=== PATIENT | male | born 1995 | race Caucasian/White ===

== ENCOUNTER 2023-09-02 08:43 | Observation (INO) ==
--- NOTE | 2023-08-24 14:16 | PAT Medication Instructions ---
Medication Instructions Date of Service August 24, 2023 Home Medications Medication Instructions Recorded cyclobenzaprine 5 mg tablet 5 mg PO BID PRN muscle spasm #30 07/21/23 tabs lidocaine 5 % topical patch 1 patch topical DAILY #30 ea 07/21/23 (Lidoderm) cyclobenzaprine 5 mg tablet 5 mg PO BID PRN muscle spasm lidocaine 5 % topical patch (Lidoderm) 1 patch topical DAILY ibuprofen 200 mg tablet 400 mg PO Q6H PRN Pain acetaminophen 500 mg tablet 1,000 mg PO Q8 PRN Pain multivitamin 1 tab PO QAM Continue as directed lidocaine 5 % topical patch (Lidoderm) 1 patch topical DAILY (just do not put on or near surgical site) ASK your surgeon for instructions ibuprofen 200 mg tablet 400 mg PO Q6H PRN Pain DO NOT take the morning of surgery multivitamin 1 tab PO QAM Take morning of surgery With a small sip of water, OTHERWISE NOTHING TO EAT OR DRINK AFTER MIDNIGHT: cyclobenzaprine 5 mg tablet 5 mg PO BID PRN muscle spasm (if needed) acetaminophen 500 mg tablet 1,000 mg PO Q8 PRN Pain (if needed) Take evening before surgery cyclobenzaprine 5 mg tablet 5 mg PO BID PRN muscle spasm (if needed) acetaminophen 500 mg tablet 1,000 mg PO Q8 PRN Pain (if needed) Other Notes If you have any questions please call us at [phone] or [phone] or [phone] or [phone]
--- NOTE | 2023-08-27 15:09 | Anesthesiology Consultation ---
Date of Service August 27, 2023 Assessment & Plan (1) Encounter for pre-operative examination: Infectious disease screening: Per assessment on 08/27/23: No known infectious disease contacts. Patient has complaints of sore throat/congestion with symptom onset 08/22/23. Patient seen at PAT 08/27/23- significant improved. Covid test done 08/27/23 ([facility]) was negative. Patient okay to proceed with surgery pending evaluation DOS. Chart Review Chart Review: Acceptable Risk for Surgery (pending evaluation DOS) and Patient seen in Pre Admission Testing Teaching & Discussion Pre-Anesthesia Teaching/Discussion Notes: Instructed NPO after midnight before surgery,except medications with 15 cc of water. Medication instructions provided according to the [facility] guidelines. History Surgery Operation Date: 09/02/23 11:35 Proposed Procedures p L4-L5 and L5-S1 Decompression - Aidan Watkins MD Height/Weight Height: 6 ft 2 in Weight: 97.8 kg Allergies Allergy/AdvReac Type Severity Reaction Status Date / Time No Known Drug Allergies Allergy Verified 08/24/23 13:35 Medications Home Medications Medication Instructions Recorded Confirmed Last Taken cyclobenzaprine 5 mg tablet 5 mg PO BID PRN muscle spasm #30 07/21/23 08/24/23 Unknown tabs lidocaine 5 % topical patch 1 patch topical DAILY #30 ea 07/21/23 08/24/23 Unknown (Lidoderm) ibuprofen 200 mg tablet 400 mg PO Q6H PRN Pain 07/30/23 08/24/23 Unknown acetaminophen 500 mg tablet 1,000 mg PO Q8 PRN Pain 08/24/23 08/24/23 Unknown multivitamin 1 tab PO QAM 08/24/23 08/24/23 Unknown Past Medical History Medical History Depression "just since my back"--no meds History of COVID-19 08/2022- mild symptoms, resolved Lumbar back pain with radiculopathy affecting left lower extremity Lumbar degenerative disc disease Migraines Exercise / Class Metabolic Activity III < 4 Walking/Shop/Light housework Past Family History Family History Other No family history of adverse response to anesthesia Denies family history of Ovarian cancer Prostate cancer Myocardial infarction Breast cancer Colorectal cancer Past Surgical History Surgical History H/O hernia repair History of wisdom tooth extraction Past Anesthesia History No Hx of Anesthesia Complications and No Family Hx of Anesthesia Complications History of PONV No Hx of PONV and No Hx of Motion Sickness Social History Smoking Status: Current some day smoker Smoking cigarettes per day: vapes intermittently (no recent use) Do You Dip or Chew Tobacco: No Smoking End Date: Quit cigarettes Hx Alcohol Use: Yes Alcohol type: beer alcohol intake frequency: holidays/special occasions only Hx Substance Use: Yes substance use type: marijuana (smokes marijuana (infrequent)) Review of Systems Patient denies chest pain, shortness of breath, dyspnea on exertion, fever, chills, cough, wheezing, palpitations. Physical Exam Vital Signs VITALS BP 35/85 P 87 TEMP 97.9 SP02 96%RA RESP 18 PHYSICAL Mildly decreased cervical extension range of motion. Full TMJ range of motion. TMD 3 finger breaths Mallampati Score 2 Dentition: missing molars Lungs: clear throughout to auscultation Cardiac: regular rate and rhythm, no murmurs noted Spine: normal Carotid arteries: negative bruit Extremities: no LE edema Lab Results Anesthesia Preop Results Results Anesthesia Widget: WBC 9.28 K/ul (4.8-10.8) 08/27/23 Hgb 15.1 g/dl (14.0-18.0) 08/27/23 Hct 41.8 % (42.0-52.0) L 08/27/23 Plt 242 K/uL (130-400) 08/27/23 PT 10.9 Seconds (9.0-12.0) 08/27/23 PTT 30 Seconds (21-31) 08/27/23 INR 1.0 (0.9-1.1) 08/27/23 SARS-CoV-2 RNA (RT-PCR) Negative (Negative) 08/27/23 Blood Type O Positive 08/27/23 Antibody Screen NEGATIVE 08/27/23 Testing Chest X-Ray Date: 08/27/23 FINDINGS: PA and lateral chest radiographs are obtained. No prior studies are available for comparison at the time of dictation. The cardiomediastinal silhouette is unremarkable. The lungs and pleural spaces are clear. There is no pneumothorax. The bony thorax appears intact. IMPRESSION: No active disease in the chest.
[~2023-09-02 08:43] MED LIST: ACETAMINOPHEN 1000 MG/100 ML IV IV ONE
[2023-09-02] MEDS ORDERED: MIDAZOLAM HCL 1 MG/ML 2ML VIAL ONE ×2 (09:13→10:36)
[2023-09-02] MEDS ORDERED: LIDOCAINE 2% 2 ML VIAL/AMP(20MG/ML) INFIL ONE (09:13)
[2023-09-02] MEDS ORDERED: fentaNYL citrate PF 100 MCG/2 ML VIAL ONE ×3 (09:13→12:36)
[2023-09-02] MEDS ORDERED: PROPOFOL IV EMULSION 10 MG/ML 20 ML VIAL IV ONE (09:13)
[2023-09-02] MEDS ORDERED: ONDANSETRON INJ 2 MG/ML 2 ML VIAL ONE (09:14)
[2023-09-02] MEDS ORDERED: DEXAMETHASONE SOD INJ 4 MG/ML VIAL ONE (09:14)
[2023-09-02] MEDS: LR 60ML/HR IV SCH (09:41)
[2023-09-02] MEDS: LR 15ML/HR IV SCH (09:41)
[2023-09-02] MEDS ORDERED: ONDANSETRON INJ 2 MG/ML 2 ML VIAL IV PRN (10:25)
[2023-09-02] MEDS ORDERED: HYDROmorphone INJ 2 MG/ML SYR/VIAL IV PRN (10:25)
[2023-09-02] MEDS ORDERED: ePHEDrine sulfate 50 MG/ML AMP IV PRN (10:25)
[2023-09-02] MEDS ORDERED: ATROPINE SULFATE 0.1 MG/ML 10ML SYR IV PRN (10:25)
[2023-09-02] MEDS ORDERED: fentaNYL citrate PF 100 MCG/2 ML VIAL IV PRN (10:25)
--- NOTE | 2023-09-02 10:28 | History & Physical Bridge Note ---
Date of Service September 02, 2023 History & Physical Bridge Note I have examined the patient, reviewed the History & Physical and in the interval since the performance of the History & Physical I have noted the following changes of clinical significance: no changes noted
[2023-09-02] MEDS: ceFAZolin 2000MG 2,000 MG/15 ML SYR IV SCH (10:35)
[2023-09-02] MEDS ORDERED: DexMEDEtomidine HCL IV 100 MCG/ML VIAL IV ONE (11:26)
[2023-09-02] MEDS ORDERED: HYDROmorphone INJ 2 MG/ML SYR/VIAL ONE ×2 (11:28→14:34)
[2023-09-02] MEDS ORDERED: ROCURONIUM BROMIDE 10 MG/ML 5 ML VIAL IV ONE (13:17)
[2023-09-02] MEDS ORDERED: ceFAZolin 330 MG/ML 1 GM VIAL ONE (14:06)
[2023-09-02] MEDS: VANCOMYCIN HCL 1000MG/20ML VIAL ONE (14:52)
[2023-09-02] MEDS: GELATIN SPONGE SZ 100 ONE (14:53)
[2023-09-02] MEDS: THROMBIN 5000 UNITS KIT ONE (14:54)
[2023-09-02] MEDS: methylPREDNISolone acetate 80 MG/ML VIAL ONE (14:54)
[2023-09-02] MEDS: FLOSEAL HEMOSTATIC MATRIX 10ML TOP ONE (14:55)
[2023-09-02] MEDS: BUPIVACAINE/EPINEPHRINE 0.5% MPF 1:200,000 30 ML VIAL ONE (14:56)
[2023-09-02] MEDS ORDERED: SUGAMMADEX SODIUM 200 MG/2 ML VIAL IV ONE (15:13)
--- NOTE | 2023-09-02 15:32 | Post Operative Brief Note ---
PG Immediate Post Op with CF Date of Surgery September 02, 2023 Pre & Post Diagnosis Operation Date: 09/02/23 11:35 Pre-Op Diagnosis: Lumbar Spinal Stenosis Post-Op Diagnosis: Lumbar Spinal Stenosis I identified the patient and participated in the time-out.: Yes Procedure Operation Date: 09/02/23 11:35 Actual Procedures p L4-L5 and L5-S1 Decompression(Not Applicable) - Aidan Watkins MD Surgeon Aidan Watkins MD Manager Sas none Estimated Blood Loss 10 Findings Consistent with Post-Op Diagnosis Specimens Specimen Description: A. L4-L5 Disc Herniation
[2023-09-02] MEDS ORDERED: METOCLOPRAMIDE HCL INJ 5 MG/ML 2 ML VIAL IV PRN (15:34)
[2023-09-02] MEDS ORDERED: MAGNESIUM HYDROXIDE SUSP 30 ML UDC PO PRN (15:34)
[2023-09-02] MEDS ORDERED: hydrOXYzine HCl 25 MG TAB PO PRN (15:34)
[2023-09-02] MEDS ORDERED: HYDROmorphone INJ 0.5 MG/0.5 ML SYR IV PRN (15:34)
[2023-09-02] MEDS ORDERED: DO NOT ADMINISTER PNEUMOCOCCAL VACCINE PRN (15:34)
[2023-09-02] MEDS ORDERED: ALUMINUM/MAGNESIUM SUSP 30 ML UDC PO PRN (15:34)
[2023-09-02] MEDS ORDERED: NALOXONE HCL 0.4 MG/1 ML VIAL/CARP IV PRN (15:34)
[2023-09-02] MEDS ORDERED: ONDANSETRON 4 MG OD TAB PO PRN (15:34)
[2023-09-02] MEDS ORDERED: FAMOTIDINE 20 MG TAB PO PRN (15:34)
[2023-09-02] MEDS ORDERED: LORazepam 0.5 MG TAB PO PRN (15:34)
[2023-09-02] MEDS ORDERED: oxyCODONE/ACETAMINOPHEN 5mg/325mg TAB PO PRN (15:34)
[2023-09-02] MEDS ORDERED: ACETAMINOPHEN 1,000 MG/100 ML VIAL IV PRN (15:34)
[2023-09-02] MEDS ORDERED: LORazepam 0.5 MG in SYRINGE 0.25 ML IV PRN (15:34)
[2023-09-02] MEDS ORDERED: DO NOT ADMINISTER FLU VACCINE PRN (15:34)
[2023-09-02] MEDS ORDERED: SOD PHOSPHATE/SOD BIPHOSPHATE ENEMA 132 ML BTL PR PRN (15:34)
[2023-09-02] MEDS ORDERED: ACETAMINOPHEN 500 MG TAB PO PRN ×2 (15:34→17:01)
[2023-09-02] MEDS ORDERED: bisacodyL 10 MG SUPP PR PRN (15:34)
[2023-09-02] MEDS: PROMETHAZINE HCL 6.25 MG in SODIUM CHLORIDE 0.9% 50 ML IV PRN (16:08)
--- NOTE | 2023-09-02 16:32 | Fluoroscopy Report ---
FL lumbar spine 2-3V CLINICAL HISTORY: L4-L5 AND L5-S1 DECOMPRESSION TECHNIQUE: 3 views were obtained with the C-arm in the OR with the above procedure. Total fluoroscopy time was 52.8 seconds. Radiation dose was 34.9 mGy. Comparison: Comparison is made to CT lumbar spine 06/29/2023 FINDINGS/IMPRESSION: Intraoperative images were obtained of L4-L5 and L5-S1 decompression. Please correlate with intraoperative fluoroscopy and operative report. ACT 112: Negative or not required by law. Electronically signed by: Lazaro Gordon M.D. 09/02/2023 4:31 PM
--- NOTE | 2023-09-02 16:45 | Anesthesiology Progress Note ---
Date of Service September 02, 2023 Anesthesia Post Procedure Vital Signs Vital Signs: Temp Pulse Resp BP Pulse Ox O2 Del Method O2 Flow Rate 09/02/23 16:35 112 H 12 148/101 H 95 Room Air 0 09/02/23 16:25 112 H 12 133/80 96 Room Air 0 09/02/23 16:15 116 H 12 143/94 H 96 Room Air 0 09/02/23 16:05 109 H 16 147/95 H 97 Room Air 0 09/02/23 15:55 110 H 14 155/99 H 96 Room Air 0 09/02/23 15:45 99 H 18 120/88 98 Oxymask 8 09/02/23 15:41 36.2 C L 103 H 18 137/89 98 Oxymask 8 09/02/23 09:23 36.4 C L 20 166/107 H 98 Room Air Pain Intensity Left Lower Back: Pain Intensity: 8 Transfer of Care Handoff Completed per policy Notes Mental Status: alert / awake / arousable Patient Amnestic to Procedure: Yes Nausea / Vomiting: adequately controlled Pain: adequately controlled Airway Patency, RR, SpO2: stable & adequate BP & HR: stable & adequate Hydration State: stable & adequate Anesthetic Complications: no major complications apparent
[2023-09-02] MEDS ORDERED: CYCLOBENZAPRINE HCL 5 MG TAB PO PRN (17:01)
[2023-09-02] MEDS ORDERED: IBUPROFEN 200 MG TAB PO PRN (17:01)
[2023-09-02] MEDS: LACTATED RINGER'S 1,000 ML IV SCH (17:04)
[2023-09-02] MEDS: PROMETHAZINE HCL INJ 25 MG/ML 1 ML VIAL ONE (18:09)
[2023-09-02] MEDS: SODIUM CHLORIDE 0.9% 50 ML BAG ONE (18:09)
[2023-09-02] MEDS: KETOROLAC 30 MG/ML VIAL IV SCH (18:11)
[2023-09-02] MEDS: ONDANSETRON INJ 2 MG/ML 2 ML VIAL IV PRN (19:42)
[2023-09-02] MEDS: DOCUSATE SODIUM/SENNA 50/8.6MG TAB PO SCH (21:40)
[2023-09-02] MEDS: diphenhydrAMINE Capsule 25 MG CAP PO PRN (21:41)
[2023-09-02] MEDS: ceFAZolin 1000MG 1,000 MG/7.5 ML SYR IV SCH (21:41)
[2023-09-02] MEDS: PROMETHAZINE HCL 12.5 MG in SODIUM CHLORIDE 0.9% 50 ML IV PRN (22:08)
[2023-09-03] MEDS: POLYETHYLENE (MIRALAX) 17 GM PACK PO SCH (05:41)
[2023-09-03] MEDS: LIDOCAINE 5% 1 PATCH TD SCH (08:46)
[2023-09-03] MEDS: MULTIVITAMIN TAB PO SCH (08:47)
--- NOTE | 2023-09-03 09:38 | Orthopedic Progress Note ---
Date of Service September 03, 2023 Assessment & Plan (1) Lumbar back pain with radiculopathy affecting left lower extremity: Subjective . Patient seen and examined, he notes some incisional symptoms, but notes improvement in his leg symptomatology prior to the surgery. Incision is dry, no focal weakness lower extremities. Impression/plan: Postop day 1 from a left L4-5 and L5-S1 lumbar decompression discectomy, overall net improvement of preoperative symptoms. Will have the patient discharged today following physical therapy and follow-up in 2 weeks, I discussed with him instructions relative to operative site care. Review of Systems All systems reviewed & are unremarkable except as noted in HPI & below. Physical Exam . Results & Data Results & Data Laboratory Results . Diagnostic Findings . PG Care Time/CCT Total # of Minutes Spent Total Time Spent with Patient: Total time spent is greater than 50% in coordination of care (as documented) at patient's floor/unit and/or counseling patient: Coding Level of Care Code 42126 Post Operative Follow-Up Diagnoses Lumbar back pain with radiculopathy affecting left lower extremity M54.16
--- NOTE | 2023-09-03 09:43 | Discharge Summary ---
Date of Service September 03, 2023 Admission HPI (Per Admitting) 28-year-old male admitted on 09/02 for surgical decompression lumbar spine. Principal Diagnosis Same as "Discharge Diagnosis" noted below under Discharge Instructions. Discharge Exam . Discharge Data Procedures Performed Operation Date: 09/02/23 11:35 Actual Procedures p L4-L5 and L5-S1 Decompression(Not Applicable) - Aidan Watkins MD Ordered Studies 09/02/23 11:35 [place] lumbar spine 2-3V Routine Hospital Course (1) Lumbar back pain with radiculopathy affecting left lower extremity: Surgical decompression. (2) Lumbar disc herniation with radiculopathy: Surgical decompression. Plan Discharge home, follow-up in 2 weeks. PG Care Time/CCT Total # of Minutes Spent Total Time Spent with Patient: Total time spent is greater than 50% in coordination of care (as documented) at patient's floor/unit and/or counseling patient: Discharge Plan Discharge Items Patient Disposition: Home - Self-Care Reason For Visit: Lumbar Spinal Stenosis, Neurogenic Claudication Discharge Diagnosis: Lumbar disc herniation with radiculopathy Activity: As commented below Lifting: No more than 5 pounds Bathing: May shower/bathe in 3 days Exercise/Sports: Wait until after follow-up appointment Weightbearing: Full weightbearing Non-emergency contact: Surgeon Call non-emergency contact if: your pain is worsening Follow-up/Referrals: Austin Purdy CRNP [Primary Care Provider] - Diet: Regular Addtl Attending Provider Instructions: Follow-up in 2 weeks. Pending Studies at Discharge: No Stand-Alone Forms: My [facility], Smoking Cessation Medications and DC Order Prescriptions: New oxycodone-acetaminophen 5-325 mg Tablet 1 - 2 tab PO Q6H PRN (Reason: pain) Qty: 20 0RF Continued cyclobenzaprine 5 mg tablet 5 mg PO BID PRN (Reason: muscle spasm) Qty: 30 0RF ibuprofen 200 mg tablet 400 mg PO Q6H PRN (Reason: Pain) multivitamin Tablet 1 tab PO QAM acetaminophen 500 mg Tablet 1,000 mg PO Q8 PRN (Reason: Pain) Discontinued lidocaine [Lidoderm] 5 % adhesive patch,medicated 1 patch topical DAILY Qty: 30 0RF Rx Instructions: leave on most painful area for up to 12 hrs Discharge Orders: Discharge Order (Routine); Ordered 09/03/23 Ordered By: Aidan Swift/Other Patient Handouts: Anatomy of a Normal Spine, Lumbar Fusion Dc Admission Data Admit Date/Time: 09/02/23 15:34 Attending Provider: Aidan Watkins Admit Provider: Aidan Watkins Primary Care Provider: Austin Purdy Other Interventions: Discharge Summary Assessment (RN) Last Done: 09/03/23 10:31
--- NOTE | 2023-09-04 10:09 | Operative Report ---
PG Post Operative Report Pre & Post Diagnosis Operation Date: 09/02/23 11:35 Pre-Op Diagnosis: Lumbar Spinal Stenosis Post-Op Diagnosis: Lumbar Spinal Stenosis I identified the patient and participated in the time-out.: Yes Procedure Operation Date: 09/02/23 11:35 Actual Procedures p L4-L5 and L5-S1 Decompression(Not Applicable) - Aidan Watkins MD Surgeon Aidan Watkins MD [place] none Estimated Blood Loss 10 Findings Consistent with Post-Op Diagnosis Specimens L4-5 disc herniation. Description of Procedure 1. Left L4-5 lumbar discectomy. (60201) 2. Left L5-S1 lumbar discectomy. (21260) Patient was taken operating room and after adequate anesthesia was carefully positioned prone on the Eh frame. A preprepped was performed followed by bringing in fluoroscopy were then marked for the approximate location for the incision just off midline to the left for a tube approach to the left side of L4-5 and L5-S1. The area was then prepped and draped, I began the procedure with a longitudinal incision just off midline to the left of L4-5, and extended inferiorly to a limited amount to allow for access to both levels. I then inserted the initial dilator from the NuVasive tube set advanced it down to the L4-5 interlaminar region, this was confirmed fluoroscopically. The additional dilators were then inserted followed by then the access tubing and then fixed to the table with the arm. We then brought in the operative microscope, this was then utilized to visualize the operative area where I then removed some of the overlying muscle tissue, and expose the bony surfaces at the L4-5 level. This included the inferior laminar edge of L4 the superior laminar edge of L5 and along the medial facet. I then thinned the overlying ligamentum flavum, and also had to shave down part of the medial aspect of the facet to gain access to the lateral edge of the dura. Once encountered, after using a combination of thrombin and Gelfoam and also Floseal for some of the epidural bleeders, was able to carefully mobilized the left lateral edge of the dura centrally exposing the disc herniation. Herniation with central left, and large, and this was then removed through an annulotomy. I was able to gently mobilize the vast majority of the herniation out in 1 piece, this was sent to pathology for gross inspectio n. I then continued with the discectomy removing any remaining tissue and this included exploration underneath the central portion of the canal, out laterally and into the disc space so I thought a thorough discectomy had been completed. The area was irrigated, Floseal was applied along with a yazmin, no evidence of any CSF leakage was noted. The excess tubing was then removed, I then gained the initial dilator from the NuVasive set and advanced this down to the L5-S1 region on the left side through the same incisional area, this was followed by the additional dilators after the confirming her location with the fluoroscopy. Followed by the access apparatus. At the L5-S1 level on the left, similar procedure was performed with inferior laminotomy of L5 and some of the superior laminar edge of S1 and along the medial facet exposing ligamentum flavum. This was then carefully removed, exposing the more lateral disc herniation at this level. Combination of pituitaries were then utilized to remove this lateral disc herniation successfully. Upon completion both areas were improved relative to the decompression, no evidence of any CSF leakage. Local anesthetic was was injected into the adjacent tissues, small amount of Depo-Medrol was placed at both levels followed by some Floseal, and also some vancomycin powder. Operative site was closed with combination of 0 Vicryl sutures for the fascia 2- 0 Vicryl sutures and rufino for the skin. Sterile dressing was applied, the patient was taken recovery room in satisfactory condition. I attest to the content of the Intraoperative Record and any orders documented therein. Any exceptions are noted below.
== END 2023-09-03 11:10 | disposition home or self-care (01) ==
LOC: 3E 08:43 → ASU 08:43